=== PATIENT | female | born 1935 | race Caucasian/White ===

== ENCOUNTER 2021-10-18 14:42 | Inpatient (IN) ==
[2021-10-18] MEDS ORDERED: Ondansetron ODT 4 MG TAB.RAPDIS SL PRN (22:17)
[2021-10-19] MEDS: Apixaban 5 MG TABLET PO SCH ×3 (01:19→22:06)
[2021-10-19 08:33] LABS: Basophils % 0.2 %; Eosinophils % 0.1 %; Hematocrit 36.6 % (35.3-44.9); Hemoglobin 12.6 g/dL (11.5-15.4); Immature Granulocytes % 1.1 % (0-4); Lymphocytes # 0.7 K/mcL (0.6-4.6); Lymphocytes % 7.7 %; Mean Corpuscular HGB Conc 34.4 g/dL (31.6-35.5); Mean Corpuscular Hemoglobin 31.9 pg (28.0-33.3); Mean Corpuscular Volume 92.7 fL (83.0-100.0); Mean Platelet Volume 10.2 fL (9.4-12.4); Monocytes # 0.6 K/mcL (0.0-1.3); Monocytes % 7.2 %; Neutrophils # 7.3 K/mcL (1.6-8.9); Platelet Count 199 K/mcL (140-400); Red Blood Count 3.95 M/mcL (3.82-4.97); Red Cell Distribution Width 12.8 % (11.5-14.5); Segmented Neutrophils % 83.7 %; White Blood Count 8.7 K/mcL (4.3-11.1)
[2021-10-19 09:04] LABS: BUN/Creatinine Ratio 19 (6-26); Blood Urea Nitrogen 18 mg/dL (8-23); Calcium 8.1 mg/dL (8.6-10.3); Carbon Dioxide 24 mEq/L (23-29); Chloride 103 mEq/L (98-107); Glucose 185 mg/dL (70-105); Osmolality,Calculated 287 (280-300); Potassium 3.7 mEq/L (3.5-5.1); Sodium 135 mEq/L (136-145); eGFR For African Americans > 60 (> 60); eGFR For Non-African Americans 55 (> 60)
[2021-10-19] MEDS: *HR* Glimepiride 2 MG TABLET PO SCH ×2 (09:38→17:33)
[2021-10-19] MEDS: dexAMETHasone 4 MG TABLET PO SCH (09:39)
[2021-10-19] MEDS: Aspirin Enteric Coated 81 MG Tablet PO SCH (09:39)
[2021-10-19] MEDS: Nitrofurantoin (BID) 100 MG CAPSULE PO SCH ×2 (09:39→22:05)
[2021-10-19] MEDS: *HR* Metformin 500 MG TABLET PO SCH ×2 (09:39→17:33)
[2021-10-19] MEDS: Cyanocobalamin (B-12) 1,000 MCG TABLET PO SCH (09:40)
[2021-10-19] MEDS: Lisinopril-HCTZ 20-12.5mg TABLET PO SCH (09:40)
[2021-10-19] MEDS: Benzonatate 100 MG CAPSULE PO SCH ×3 (09:40→22:05)
[2021-10-19] MEDS ORDERED: *HR* Dextrose 50 % in Water (Syg) 50 ML SYRINGE IVP PRN (11:56)
[2021-10-19] MEDS ORDERED: Dextrose Gel 15 GM/37.5 ML TUBE PO PRN ×2 (11:56)
[2021-10-19] MEDS ORDERED: D5% in Water 1,000 ML IVC PRN (11:56)
[2021-10-19] MEDS: Insulin LISPRO 300 UNITS/3 ML VIAL SUBQ SCH ×3 (12:23→22:07)
[2021-10-20] MEDS: Insulin LISPRO 300 UNITS/3 ML VIAL SUBQ SCH ×4 (08:37→20:12)
[2021-10-20] MEDS: *HR* Glimepiride 2 MG TABLET PO SCH ×2 (08:41→16:42)
[2021-10-20] MEDS: Nitrofurantoin (BID) 100 MG CAPSULE PO SCH (08:41)
[2021-10-20] MEDS: Cyanocobalamin (B-12) 1,000 MCG TABLET PO SCH (08:42)
[2021-10-20] MEDS: dexAMETHasone 4 MG TABLET PO SCH (08:42)
[2021-10-20] MEDS: Lisinopril-HCTZ 20-12.5mg TABLET PO SCH (08:42)
[2021-10-20] MEDS: Apixaban 5 MG TABLET PO SCH ×2 (08:42→20:11)
[2021-10-20] MEDS: Benzonatate 100 MG CAPSULE PO SCH ×3 (08:42→20:11)
[2021-10-20] MEDS: *HR* Metformin 500 MG TABLET PO SCH ×2 (08:42→16:41)
[2021-10-20] MEDS: Aspirin Enteric Coated 81 MG Tablet PO SCH (08:43)
[2021-10-21] MEDS: Insulin LISPRO 300 UNITS/3 ML VIAL SUBQ SCH ×4 (07:22→20:18)
[2021-10-21] MEDS: *HR* Metformin 500 MG TABLET PO SCH ×2 (09:34→17:02)
[2021-10-21] MEDS: *HR* Glimepiride 2 MG TABLET PO SCH ×2 (09:34→17:02)
[2021-10-21] MEDS: Lisinopril-HCTZ 20-12.5mg TABLET PO SCH (09:35)
[2021-10-21] MEDS: Aspirin Enteric Coated 81 MG Tablet PO SCH (09:35)
[2021-10-21] MEDS: Apixaban 5 MG TABLET PO SCH ×2 (09:36→20:15)
[2021-10-21] MEDS: Benzonatate 100 MG CAPSULE PO SCH ×3 (09:36→20:14)
[2021-10-21] MEDS: dexAMETHasone 4 MG TABLET PO SCH (09:36)
[2021-10-21] MEDS: Cyanocobalamin (B-12) 1,000 MCG TABLET PO SCH (09:36)
[2021-10-22] MEDS: Insulin LISPRO 300 UNITS/3 ML VIAL SUBQ SCH ×4 (07:09→21:31)
[2021-10-22] MEDS: Aspirin Enteric Coated 81 MG Tablet PO SCH (08:36)
[2021-10-22] MEDS: Apixaban 5 MG TABLET PO SCH ×2 (08:36→21:33)
[2021-10-22] MEDS: Benzonatate 100 MG CAPSULE PO SCH ×3 (08:36→21:32)
[2021-10-22] MEDS: *HR* Metformin 500 MG TABLET PO SCH ×2 (08:37→16:15)
[2021-10-22] MEDS: Lisinopril-HCTZ 20-12.5mg TABLET PO SCH (08:37)
[2021-10-22] MEDS: Cyanocobalamin (B-12) 1,000 MCG TABLET PO SCH (08:37)
[2021-10-22] MEDS: *HR* Glimepiride 2 MG TABLET PO SCH ×2 (08:38→16:14)
[2021-10-22] MEDS: dexAMETHasone 4 MG TABLET PO SCH (08:38)
[2021-10-23] MEDS: Insulin LISPRO 300 UNITS/3 ML VIAL SUBQ SCH ×4 (07:48→22:20)
[2021-10-23] MEDS: Lisinopril-HCTZ 20-12.5mg TABLET PO SCH (08:09)
[2021-10-23] MEDS: Cyanocobalamin (B-12) 1,000 MCG TABLET PO SCH (08:10)
[2021-10-23] MEDS: Aspirin Enteric Coated 81 MG Tablet PO SCH (08:10)
[2021-10-23] MEDS: Apixaban 5 MG TABLET PO SCH ×2 (08:10→22:20)
[2021-10-23] MEDS: Benzonatate 100 MG CAPSULE PO SCH ×3 (08:10→22:20)
[2021-10-23] MEDS: dexAMETHasone 4 MG TABLET PO SCH (08:11)
[2021-10-23] MEDS: *HR* Glimepiride 2 MG TABLET PO SCH (08:12)
[2021-10-23] MEDS: *HR* Metformin 500 MG TABLET PO SCH (08:13)
[2021-10-24] MEDS: Insulin LISPRO 300 UNITS/3 ML VIAL SUBQ SCH ×4 (09:50→20:21)
[2021-10-24] MEDS: Apixaban 5 MG TABLET PO SCH ×2 (10:03→20:21)
[2021-10-24] MEDS: Lisinopril-HCTZ 20-12.5mg TABLET PO SCH (10:03)
[2021-10-24] MEDS: *HR* Glimepiride 2 MG TABLET PO SCH (10:03)
[2021-10-24] MEDS: Cyanocobalamin (B-12) 1,000 MCG TABLET PO SCH (10:03)
[2021-10-24] MEDS: Aspirin Enteric Coated 81 MG Tablet PO SCH (10:03)
[2021-10-24] MEDS: *HR* Metformin 500 MG TABLET PO SCH (10:03)
[2021-10-24] MEDS: Benzonatate 100 MG CAPSULE PO SCH ×3 (10:04→20:20)
[2021-10-25] MEDS: Insulin LISPRO 300 UNITS/3 ML VIAL SUBQ SCH ×4 (08:58→21:56)
[2021-10-25] MEDS: *HR* Metformin 500 MG TABLET PO SCH (09:28)
[2021-10-25] MEDS: Aspirin Enteric Coated 81 MG Tablet PO SCH (09:29)
[2021-10-25] MEDS: Cyanocobalamin (B-12) 1,000 MCG TABLET PO SCH (09:29)
[2021-10-25] MEDS: Apixaban 5 MG TABLET PO SCH (09:30)
[2021-10-25] MEDS: Benzonatate 100 MG CAPSULE PO SCH ×3 (09:30→21:55)
[2021-10-25] MEDS: Lisinopril-HCTZ 20-12.5mg TABLET PO SCH (09:30)
[2021-10-25] MEDS: *HR* Glimepiride 2 MG TABLET PO SCH (09:30)
[2021-10-25 12:11] LABS: Basophils % 0.2 %; Eosinophils # 0.1 K/mcL (0.0-0.6); Eosinophils % 0.7 %; Hemoglobin 13.9 g/dL (11.5-15.4); Immature Granulocytes % 1.7 % (0-4); Lymphocytes % 12.2 %; Mean Corpuscular HGB Conc 33.1 g/dL (31.6-35.5); Mean Corpuscular Hemoglobin 31.8 pg (28.0-33.3); Mean Corpuscular Volume 96.1 fL (83.0-100.0); Monocytes # 0.7 K/mcL (0.0-1.3); Monocytes % 9.1 %; Neutrophils # 6.1 K/mcL (1.6-8.9); Platelet Count 211 K/mcL (140-400); Red Blood Count 4.37 M/mcL (3.82-4.97); Red Cell Distribution Width 13.1 % (11.5-14.5); Segmented Neutrophils % 76.1 %
[2021-10-25 12:30] LABS: BUN/Creatinine Ratio 24 (6-26); Blood Urea Nitrogen 24 mg/dL (8-23); Calcium 9.1 mg/dL (8.6-10.3); Carbon Dioxide 27 mEq/L (23-29); Chloride 100 mEq/L (98-107); Glucose 87 mg/dL (70-105); Osmolality,Calculated 285 (280-300); Potassium 3.7 mEq/L (3.5-5.1); Sodium 136 mEq/L (136-145); eGFR For African Americans > 60 (> 60); eGFR For Non-African Americans 53 (> 60)
[2021-10-25 15:27] LABS: INR 1.7; Prothrombin Time 18.6 Seconds (9.4-12.1)
[2021-10-25] MEDS: *HR* Enoxaparin 60 MG/0.6 ML SYRINGE SQ SCH (17:14)
[2021-10-25] MEDS ORDERED: Warfarin perPT PO PRN (18:00)
[2021-10-25] MEDS ORDERED: *HR* Warfarin 5 MG TABLET PO ONE (18:02)
[2021-10-26] MEDS: *HR* Enoxaparin 60 MG/0.6 ML SYRINGE SQ SCH ×2 (06:16→18:28)
[2021-10-26 07:33] LABS: INR 1.4; Prothrombin Time 15.7 Seconds (9.4-12.1)
[2021-10-26] MEDS: Insulin LISPRO 300 UNITS/3 ML VIAL SUBQ SCH ×4 (07:45→20:24)
[2021-10-26] MEDS: *HR* Glimepiride 2 MG TABLET PO SCH (08:38)
[2021-10-26] MEDS: Aspirin Enteric Coated 81 MG Tablet PO SCH (08:39)
[2021-10-26] MEDS: Cyanocobalamin (B-12) 1,000 MCG TABLET PO SCH (08:39)
[2021-10-26] MEDS: Lisinopril-HCTZ 20-12.5mg TABLET PO SCH (08:39)
[2021-10-26] MEDS: Benzonatate 100 MG CAPSULE PO SCH ×3 (08:39→20:36)
[2021-10-26] MEDS: *HR* Metformin 500 MG TABLET PO SCH (08:39)
[2021-10-26] MEDS ORDERED: *HR* Warfarin 2.5 MG TABLET PO ONE (18:00)
[2021-10-27] MEDS: *HR* Enoxaparin 60 MG/0.6 ML SYRINGE SQ SCH (06:17)
[2021-10-27 07:35] VITALS: BP 117/64; PULSE 60; RESP 18; TEMP 97.5; O2SAT 96
[2021-10-27] MEDS: *HR* Glimepiride 2 MG TABLET PO SCH (07:59)
[2021-10-27] MEDS: Benzonatate 100 MG CAPSULE PO SCH (07:59)
[2021-10-27] MEDS: *HR* Metformin 500 MG TABLET PO SCH (07:59)
[2021-10-27] MEDS: Lisinopril-HCTZ 20-12.5mg TABLET PO SCH (07:59)
[2021-10-27] MEDS: Aspirin Enteric Coated 81 MG Tablet PO SCH (08:00)
[2021-10-27] MEDS: Insulin LISPRO 300 UNITS/3 ML VIAL SUBQ SCH (08:00)
[2021-10-27] MEDS: Cyanocobalamin (B-12) 1,000 MCG TABLET PO SCH (08:00)
[2021-10-27 08:27] LABS: INR 1.3; Prothrombin Time 14.1 Seconds (9.4-12.1)
[2021-10-27 09:26] LABS: Hematocrit 38.3 % (35.3-44.9); Hemoglobin 12.7 g/dL (11.5-15.4); Mean Corpuscular HGB Conc 33.2 g/dL (31.6-35.5); Mean Corpuscular Hemoglobin 31.7 pg (28.0-33.3); Mean Corpuscular Volume 95.5 fL (83.0-100.0); Mean Platelet Volume 10.7 fL (9.4-12.4); Platelet Count 156 K/mcL (140-400); Red Blood Count 4.01 M/mcL (3.82-4.97); Red Cell Distribution Width 13.2 % (11.5-14.5); White Blood Count 4.8 K/mcL (4.3-11.1)
[2021-10-27] MEDS ORDERED: *HR* Warfarin 2.5 MG TABLET PO ONE (18:00)
== END 2021-10-27 11:45 | disposition home health service (06) | DRG 189 ==
LOC: INPPIK 21:36
PROVIDERS: ADMIT Internal Medicine; ATTEND Internal Medicine